=== PATIENT | male | born 1960 | race Caucasian/White ===

== ENCOUNTER 2017-07-21 15:41 | Emergency (ER) | payer OTHER, SELFPAY ==
[~2017-07-21] VITALS: Ht 188 cm; Wt 129.0 kg
[2017-07-21 15:43] VITALS: BP 125/83
[2017-07-21] MEDS ORDERED: COLCHICINE 0.6 MG TABLET PO ONE (16:18)
== END 2017-07-21 17:38 | disposition home or self-care (01) ==
LOC: ED 17:10
DX: M10.9 Gout, unspecified (principal)
CPT/HCPCS: 99283

== ENCOUNTER 2017-08-10 08:56 | Emergency (ER) | payer MEDICAID, OTHER ==
[~2017-08-10] VITALS: Ht 188 cm; Wt 131.0 kg
[2017-08-10] MEDS ORDERED: KETOROLAC 30 MG/1 ML ONE (09:30)
[2017-08-10] MEDS ORDERED: KETOROLAC 30 MG/1 ML IM ONE (09:30)
[2017-08-10 10:37] VITALS: BP 130/80
== END 2017-08-10 10:41 | disposition home or self-care (01) ==
LOC: ED 10:35
DX: M25.571 Pain in right ankle and joints of right foot (principal); M10.9 Gout, unspecified
CPT/HCPCS: 36415; 73610; 84550; 96372; 99285; J1885